=== PATIENT | female | born 1970 | race Caucasian/White ===

== ENCOUNTER 2022-03-17 10:42 | Emergency (ER) | payer BC, OTHER ==
[~2022-03-17] VITALS: Ht 167.6 cm; Wt 106.6 kg
[2022-03-17 10:57] VITALS: BP_SYST 156
[2022-03-17 11:30] LABS: BASOPHILS # (AUTO) 0.1 K/uL (0.0-0.2); BASOPHILS % (AUTO) 0.5 % (0.0-2.0); EOSINOPHILS # (AUTO) 0.1 K/uL (0.0-0.4); EOSINOPHILS % (AUTO) 1.4 % (0.0-4.0); HEMATOCRIT 36.2 % (36-48); HEMOGLOBIN 12.4 g/dL (12.0-16.0); LYMPHOCYTES # (AUTO) 2.5 K/uL (1.0-5.5); LYMPHOCYTES % (AUTO) 24.9 % (20.5-51.5); MEAN CORPUSCULAR HEMOGLOBIN 27 pg (27-31); MEAN CORPUSCULAR HGB CONC 34 % (32-36); MEAN CORPUSCULAR VOLUME 79 fL (79.0-98.0); MONOCYTES # (AUTO) 0.5 K/uL (0.0-1.0); MONOCYTES % (AUTO) 5.1 % (1.7-9.3); NEUTROPHILS # (AUTO) 6.8 K/uL (1.8-7.7); NEUTROPHILS % (AUTO) 68.1 % (40.0-70.0); PLATELET COUNT (AUTO) 317 K/uL (130-430); RED BLOOD CELL COUNT(AUTO) 4.57 MIL/uL (4.2-6.2); WHITE BLOOD COUNT (AUTO) 9.9 K/uL (4.8-10.8)
[2022-03-17 11:52] LABS: CREATININE 0.74 mg/dL (0.55-1.30)
[2022-03-17 11:56] LABS: ALBUMIN 3.1 g/dL (3.4-4.8); TOTAL BILIRUBIN 0.2 mg/dL (0.0-1.0)
[2022-03-17] MEDS ORDERED: FAMO-132 PO (13:19)
[2022-03-17] MEDS ORDERED: TRAM50TA2 PO (13:19)
[2022-03-17 15:54] VITALS: BP_SYST 156
== END 2022-03-17 15:48 | disposition home or self-care (01) ==
LOC: SED 10:42
DX: R10.13 Epigastric pain (principal); Z79.899 Other long term (current) drug therapy
CPT/HCPCS: 36415; 76700-TC; 80053; 83690; 85025; 99284

== ENCOUNTER 2022-05-18 07:00 | Day surgery (SDC) | payer OTHER ==
[~2022-05-18] VITALS: Ht 165.1 cm; Wt 108.9 kg
[~2022-05-18 07:00] MED LIST: FAMO-132 PO; TRAM50TA2 PO
[2022-05-18] MEDS ORDERED: KETOROLAC TROMETHAMINE 30 MG VIAL ONE (08:05)
[2022-05-18] MEDS ORDERED: MIDAZOLAM HCL 5 MG/5 ML VIAL ONE (08:05)
[2022-05-18] MEDS ORDERED: NS 1000 ML IV.SOLN IV ONE (08:05)
[2022-05-18] MEDS ORDERED: PROPOFOL 200MG/ 20ML VIAL (DIPRIVAN) IV ONE (08:05)
[2022-05-18] MEDS ORDERED: ONDANSETRON HCL 4 MG/2 ML VIAL ONE (08:05)
[2022-05-18] MEDS ORDERED: SUGAMMADEX SODIUM 200 MG/2 ML VIAL IV ONE (08:05)
[2022-05-18] MEDS ORDERED: NS IRRIG SOLN 1000 ML IR ONE (08:05)
[2022-05-18] MEDS ORDERED: fentaNYL CITRATE 250 MCG/5 ML AMP ONE (08:05)
[2022-05-18] MEDS ORDERED: DESFLURANE 15 MIN GAS INH ONE (08:05)
[2022-05-18] MEDS ORDERED: WATER FOR IRRIGATION,STERILE 1,000 ML IRRIG.SOLN IR ONE (08:05)
[2022-05-18] MEDS ORDERED: BUPIVACAINE /PF 0.25% 30 ML VIAL INJ ONE (08:05)
[2022-05-18] MEDS ORDERED: ROCURONIUM BROMIDE 10 MG/ML (ZEMURON) ONE (08:05)
[2022-05-18] MEDS ORDERED: DEXAMETHASONE SOD PHOSPHATE 4 MG/ML VIAL ONE (08:05)
[2022-05-18] MEDS ORDERED: MEPERIDINE HCL/PF 25 MG/ML DISP.SYRIN IVP PRN (08:45)
[2022-05-18] MEDS ORDERED: LABETALOL 100 MG/ 20ML VIAL IVP PRN (08:45)
[2022-05-18] MEDS ORDERED: hydrALAZINE HCL 20 MG/ML VIAL IVP PRN (08:45)
[2022-05-18] MEDS ORDERED: HYDROmorphone 1 MG/ML INJ. CARTRIDGE IVP PRN ×2 (08:45)
[2022-05-18] MEDS ORDERED: METOCLOPRAMIDE HCL 10 MG/2 ML VIAL IVP PRN (08:45)
[2022-05-18] MEDS ORDERED: LR 1,000 ML IV SCH (08:45)
[2022-05-18] MEDS ORDERED: ACETAMINOPHEN I.V. 1000 MG 100 ML IV ONE (09:28)
[2022-05-18] MEDS ORDERED: ONDANSETRON HCL 4 MG/2 ML VIAL IM PRN (11:00)
[2022-05-18] MEDS ORDERED: OXYCODONE/ACETAMINOPHEN 5-325 TABLET PO PRN ×2 (11:00)
[2022-05-18] MEDS ORDERED: IBUPROFEN 800 MG TABLET PO PRN (11:00)
[2022-05-18] MEDS: HYDROmorphone 1 MG/ML INJ. CARTRIDGE ONE ×2 (11:10→11:15)
[2022-05-18 14:29] VITALS: BP_SYST 132
== END 2022-05-18 13:45 | disposition home or self-care (01) ==
LOC: SDS 07:00 → SMU 07:01 → SDS 13:45
PROVIDERS: ATTEND Obstetrics & Gynecology
DX: N83.202 Unspecified ovarian cyst, left side (principal); N83.201 Unspecified ovarian cyst, right side; I10 Essential (primary) hypertension; K21.9 Gastro-esophageal reflux disease without esophagitis; Z87.891 Personal history of nicotine dependence; J45.909 Unspecified asthma, uncomplicated; E11.9 Type 2 diabetes mellitus without complications; Z79.899 Other long term (current) drug therapy; Z20.822 Contact with and (suspected) exposure to COVID-19
CPT/HCPCS: 87081; 58661; 36415; 88305; 87426; J3490 ×2; J1100; J1885; J2250; J2405; J2704; J3010; J1170; J7030; J0131